=== PATIENT | female | born 2000 | race Caucasian/White ===

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

== ENCOUNTER 2018-01-18 21:17 | Emergency (ER) | payer MEDICAID ==
[2018-01-18] MEDS ORDERED: Fluticasone NASAL SPRAY 50MCG* 16 gm SPRAY BTL BOTH NARES ONE (22:59)
--- NOTE | 2018-01-18 23:00 | ED ---
Throat Pain/Nasal Congestion - HPI Summary HPI Summary: 17 female presents to sore throat for the past couple days. She states her throat mostly hurts in the morning. she has been having postnasal drip. She admits to sinus congestion. She admits to occasional headache. She admits to ear fullness. She has not taking anything for her symptoms. She took Chloraseptic without relief. She denies any history of seasonal allergies. She denies any cough. No chest pain or shortness of breath. She also admits to some right upper dental pain and she lost her filling three months ago. She states that is worse with cold and hot temperatures. She states that it is a sharp pain. No abscess felt the area. She has a dental follow-up in a week. - History of Current Complaint Chief Complaint: EDThroatPain Time Seen by Provider: 01/18/18 22:15 - Allergies/Home Medications Allergies/Adverse Reactions: Allergies Allergy/AdvReac Type Severity Reaction Status Date / Time Latex, Natural Rubber Allergy Rash Verified 10/21/17 15:48 Home Medications: Home Medications Acetaminophen TAB* [Tylenol TAB*] 650 mg PO Q4H PRN 01/18/18 [History Confirmed 01/18/18] PMH/Surg Hx/FS Hx/Imm Hx Endocrine/Hematology History: Denies: Hx Anticoagulant Therapy, Hx Diabetes, Hx Thyroid Disease Cardiovascular History: Denies: Hx Hypertension, Hx Pacemaker/ICD Respiratory History: Reports: Hx Asthma - albuterol MDI prn Denies: Hx Chronic Obstructive Pulmonary Disease (COPD) GI History: Denies: Hx Ulcer History: Denies: Hx Renal Disease Neurological History: Denies: Hx Dementia, Hx Seizures Psychiatric History: Reports: Hx Anxiety - Pt states no MH hx, Hx Depression, Hx Post Traumatic Stress Disorder, Hx Inpatient Treatment, Hx of Violent Episodes Against Others, Other Psychiatric Issues/Disorders - add, odd, borderline personality disorder Denies: Hx Eating Disorder, Hx Substance Abuse - Surgical History Surgery Procedure, Year, and Place: 2001 tonsilectomy - Immunization History Date of Tetanus Vaccine: Up to date Date of Influenza Vaccine: None, never Infectious Disease History: No Infectious Disease History: Reports: Hx of Known/Suspected MRSA - hx of mrsa in boil on leg Denies: Hx Clostridium Difficile, Hx Hepatitis, Hx Human Immunodeficiency Virus (HIV), Hx Shingles, Hx Tuberculosis, History Other Infectious Disease, Traveled Outside the [place] in Last 30 Days - Family History Known Family History: Positive: Other - schizophrenia, bipolar, depression, anxiety, mood disorder, EtOH abuse - Social History Alcohol Use: None Hx Substance Use: Yes Substance Use Type: Reports: None Substance Use Comment - Amount & Last Used: denies drug use when asked but urine screen shows positive for cannabinoids Hx Tobacco Use: Yes Smoking Status (MU): Heavy Every Day Tobacco Smoker Type: Cigarettes Amount Used/How Often: 3 qd Have You Smoked in the Last Year: Yes Review of Systems Negative: Fever Positive: Dental Pain, Sore Throat Negative: Chest Pain Negative: Shortness Of Breath All Other Systems Reviewed And Are Negative: Yes Physical Exam Triage Information Reviewed: Yes Vital Signs On Initial Exam: Initial Vitals Temp Pulse Resp BP Pulse Ox 99.6 F 105 20 137/78 97 01/18/18 21:18 01/18/18 21:18 01/18/18 21:18 01/18/18 21:18 01/18/18 21:18 Vital Signs Reviewed: Yes Appearance: Positive: Well-Appearing Skin: Positive: Warm, Dry Head/Face: Positive: Normal Head/Face Inspection Eyes: Positive: Normal, EOMI, YAHAIRA, Conjunctiva Clear ENT: Positive: Pharynx normal - cobblestone, Nasal drainage, TMs normal, Other - soft palate symmetric. Negative: Trismus, Muffled voice, Uvula midline Neck: Positive: Supple, Nontender, No Lymphadenopathy Respiratory/Lung Sounds: Positive: Clear to Auscultation, Breath Sounds Present Cardiovascular: Positive: Normal, RRR Abdomen Description: Positive: Nontender, Soft Bowel Sounds: Positive: Present Musculoskeletal: Positive: Normal Neurological: Positive: Normal Psychiatric: Positive: Normal Diagnostics - Vital Signs Vital Signs Temp Pulse Resp BP Pulse Ox 01/18/18 21:18 99.6 F 105 20 137/78 97 - Laboratory Lab Statement: Any lab studies that have been ordered have been reviewed, and results considered in the medical decision making process. EENT Course/Dx - Course Course Of Treatment: 17 female presents to sore throat for the past couple days. She states her throat mostly hurts in the morning. she has been having postnasal drip. She admits to sinus congestion. She admits to occasional headache. She admits to ear fullness. She has not taking anything for her symptoms. She took Chloraseptic without relief. She denies any history of seasonal allergies. She denies any cough. No chest pain or shortness of breath. She also admits to some right upper dental pain and she lost her filling three months ago. She states that is worse with cold and hot temperatures. She states that it is a sharp pain. No abscess felt the area. She has a dental follow-up in a week. On exam has cobblestoning of pharynx. Uvula midline. Soft palate symmetric. Lungs clear to auscultation. Nasal discharge present. Tympanic membrane shows fluid behind the ears. Symptoms are most consistent with allergic rhinitis. Will try Flonase her symptoms. Patient declined strep was slow at this time. Dental pain does not appear to be an abscess or a source of infection. We'll have follow-up with dentist as scheduled. Patient understands agrees with plan. - Differential Diagnoses Differential Diagnoses: Allergic Rhinitis, Pharyngitis, Sinusitis - Diagnoses Provider Diagnoses: Pharyngitis Discharge - Sign-Out/Discharge Documenting (check all that apply): Discharge/Admit/Transfer - Discharge Plan Condition: Good Disposition: HOME Patient Education Materials: Allergic Rhinitis (ED) Referrals: Reyna Flores NP [Primary Care Provider] - Additional Instructions: Use saline spray in nose as much as needed Use intranasal steroid one spray each nostril twice a day Take Tylenol or ibuprofen for headache every 6 hours Follow up with primary in 5 days if no improvement Return to ED if develop any new or worsening symptoms - Billing Disposition and Condition Condition: GOOD Disposition: Home
[2018-01-18 23:33] VITALS: BP 130/76
== END 2018-01-18 23:35 | disposition home or self-care (01) ==
LOC: ED 21:17
DX: J02.9 Acute pharyngitis, unspecified (principal); R09.82 Postnasal drip; J34.89 Other specified disorders of nose and nasal sinuses; K08.89 Other specified disorders of teeth and supporting structures; J45.909 Unspecified asthma, uncomplicated; F17.210 Nicotine dependence, cigarettes, uncomplicated; Z86.14 Personal history of Methicillin resistant Staphylococcus aureus infection
CPT/HCPCS: 36415; 86703; 99282

== ENCOUNTER 2019-01-04 12:22 | Emergency (ER) | payer OTHER ==
[2019-01-04 14:55] VITALS: BP 116/64
--- NOTE | 2019-01-04 16:10 | ED ---
Throat Pain/Nasal Congestion - HPI Summary HPI Summary: Patient is a 18-year-old female with history of root canal to tooth #15 presenting to the ED with tooth pain times several weeks. She states since the root canal fell out approximately 2 weeks ago, she has been endorsing pain to this area. She denies any swelling, drainage from the area. No history of abscess. She states they never placed Over the area which has caused her more pain. She is currently and unable to take ibuprofen. States she has not been taking Tylenol or other medications [id number] for relief. - History of Current Complaint Chief Complaint: EDDentalPain Time Seen by Provider: 01/04/19 13:06 Hx Obtained From: Patient Onset/Duration: Sudden Onset Severity: Moderate Associated Signs And Symptoms: Negative: Dysphagia, FB Sensation, Drooling, Wheezing, Hoarseness - Epiglottits Risk Factors Epiglottis Risk Factors: Negative - Allergies/Home Medications Allergies/Adverse Reactions: Allergies Allergy/AdvReac Type Severity Reaction Status Date / Time Latex, Natural Rubber Allergy Rash Verified 01/04/19 13:18 PMH/Surg Hx/FS Hx/Imm Hx Previously Healthy: Yes Endocrine/Hematology History: Denies: Hx Anticoagulant Therapy, Hx Diabetes, Hx Thyroid Disease Cardiovascular History: Denies: Hx Hypertension, Hx Pacemaker/ICD Respiratory History: Reports: Hx Asthma - albuterol MDI prn Denies: Hx Chronic Obstructive Pulmonary Disease (COPD) GI History: Denies: Hx Ulcer History: Denies: Hx Renal Disease Sensory History: Denies: Hx Eye Prosthesis, Hx Legally Blind, Hx Deafness Opthamlomology History: Denies: Hx Eye Prosthesis, Hx Legally Blind Neurological History: Denies: Hx Dementia, Hx Seizures Psychiatric History: Reports: Hx Anxiety - Pt states no MH hx, Hx Depression, Hx Post Traumatic Stress Disorder, Hx Inpatient Treatment, Hx of Violent Episodes Against Others, Other Psychiatric Issues/Disorders - add, odd, borderline personality disorder Denies: Hx Eating Disorder, Hx Substance Abuse - Surgical History Surgery Procedure, Year, and Place: 2001 tonsilectomy - Immunization History Date of Tetanus Vaccine: Up to date Date of Influenza Vaccine: None, never Hx Pertussis Vaccination: No Immunizations Up to Date: Yes Infectious Disease History: No Infectious Disease History: Reports: Hx of Known/Suspected MRSA - hx of mrsa in boil on leg Denies: Hx Clostridium Difficile, Hx Hepatitis, Hx Human Immunodeficiency Virus (HIV), Hx Shingles, Hx Tuberculosis, History Other Infectious Disease, Traveled Outside the [place] in Last 30 Days - Family History Known Family History: Positive: Other - schizophrenia, bipolar, depression, anxiety, mood disorder, EtOH abuse - Social History Occupation: Unemployed Lives: With Family Alcohol Use: None Hx Substance Use: Yes Substance Use Type: Reports: None Substance Use Comment - Amount & Last Used: denies drug use when asked but urine screen shows positive for cannabinoids Hx Tobacco Use: Yes Smoking Status (MU): Heavy Every Day Tobacco Smoker Type: Cigarettes Amount Used/How Often: 3 qd Have You Smoked in the Last Year: Yes Review of Systems Constitutional: Negative Negative: Fever, Chills, Fatigue, Skin Diaphoresis Positive: Dental Pain - left upper to tooth #15 Negative: Palpitations, Chest Pain Negative: Shortness Of Breath, Cough Genitourinary: Negative Positive: no symptoms reported, see HPI Negative: Arthralgia, Myalgia Positive: Other Neurological: Negative All Other Systems Reviewed And Are Negative: Yes Physical Exam Triage Information Reviewed: Yes Vital Signs On Initial Exam: Initial Vitals Temp Pulse Resp BP Pulse Ox 98.3 F 100 18 115/68 97 01/04/19 12:24 01/04/19 12:24 01/04/19 12:24 01/04/19 12:24 01/04/19 12:24 Vital Signs Reviewed: Yes Appearance: Positive: Well-Appearing, Well-Nourished Skin: Positive: Warm, Skin Color Reflects Adequate Perfusion Head/Face: Positive: Normal Head/Face Inspection Eyes: Positive: EOMI, Conjunctiva Clear ENT: Positive: Other - left upper dental pain without erythema, swelling or drainage Neck: Positive: Supple, No Lymphadenopathy Respiratory/Lung Sounds: Positive: Clear to Auscultation, Breath Sounds Present Cardiovascular: Positive: RRR, Pulses are Symmetrical in both Upper and Lower Extremities Musculoskeletal: Positive: Normal, Strength/ROM Intact Neurological: Positive: Sensory/Motor Intact, Alert, Oriented to Person Place, Time, Speech Normal Psychiatric: Positive: Affect/Mood Appropriate Diagnostics - Vital Signs Vital Signs Temp Pulse Resp BP Pulse Ox 01/04/19 14:53 98.4 F 96 18 116/64 97 01/04/19 12:24 98.3 F 100 18 115/68 97 - Laboratory Lab Statement: Any lab studies that have been ordered have been reviewed, and results considered in the medical decision making process. EENT Course/Dx - Course Course Of Treatment: Patient is evaluated for removal a root canal which is recently fallen out. She denies any fevers, sweats, chills. She states she is making sure she does not have an infection before the tooth was pulled next week. Physical examination, there is no swelling or drainage from the tooth. There appears to be an area where a root canal was placed and has fallen out. No signs of infection. This patient will have this tooth pulled next week, she will be placed on Keflex which is safe in . She is encouraged Tylenol. - Differential Diagnoses Differential Diagnoses: Other - Fracture, gingivitis, dental abscess, dental pain, broken root canal - Diagnoses Provider Diagnoses: Failing root canal Discharge - Sign-Out/Discharge Documenting (check all that apply): Patient Departure Patient Received Moderate/Deep Sedation with Procedure: No - Discharge Plan Condition: Stable Disposition: HOME Prescriptions: Cephalexin CAP* [Keflex CAP*] 500 mg PO BID #14 cap MDD 4 Patient Education Materials: Toothache (ED) Referrals: Reyna Flores NP [Primary Care Provider] - Additional Instructions: Please follow up with your dentist Keflex twice daily x 7 days - Billing Disposition and Condition Condition: STABLE Disposition: Home
== END 2019-01-04 14:53 | disposition home or self-care (01) ==
LOC: ED 12:22
DX: O26.899 Other specified pregnancy related conditions, unspecified trimester (principal); K08.59 Other unsatisfactory restoration of tooth; J45.909 Unspecified asthma, uncomplicated; Z91.040 Latex allergy status; F17.210 Nicotine dependence, cigarettes, uncomplicated
CPT/HCPCS: 99281

== ENCOUNTER → 2019-03-04 14:58 | Emergency (ER) | payer OTHER ==
[2019-03-04 16:20] LABS: ABS Eosinophils 0.1 10^3/ul (0-0.6); ABS Lymphocytes 2.2 10^3/ul (1.0-4.8); ABS Monocytes 0.4 10^3/ul (0-0.8); ABS Neutrophils 10.6 10^3/ul (1.5-7.7); Eosinophil % 0.6 %; Hematocrit 37 % (35-47); Hemoglobin 12.1 g/dL (12.0-16.0); Lymphocyte % 16.7 %; Mean Corpuscular HGB Conc 33 g/dL (31-36); Mean Corpuscular Hemoglobin 31 pg (27-31); Mean Corpuscular Volume 95 fL (80-97); Mean Platelet Volume 9.2 fL (7.4-10.4); Platelet Count 187 10^3/uL (150-450); Red Blood Count 3.91 10^6 /uL (3.70-4.87); Red Cell Distribution Width 14 % (10-15); White Blood Count 13.4 10^3/uL (3.5-10.8)
[2019-03-04 16:23] LABS: Urine Appearance Cloudy; Urine Bacteria 1+ (Absent); Urine Bilirubin Negative (Negative); Urine Blood Negative (Negative); Urine Color Yellow; Urine Glucose Negative (Negative); Urine Ketones Negative (Negative); Urine Nitrite Negative (Negative); Urine Protein Negative (Negative); Urine Red Blood Cell Trace(0-2/hpf) (Absent); Urine Specific Gravity 1.006 (1.010-1.030); Urine Squamous Epithelial Cell Present (Absent); Urine Urobilinogen Negative (Negative); Urine White Blood Cell Trace(0-5/hpf) (Absent)
[2019-03-04 16:28] LABS: Albumin/Globulin Ratio 1.4 (1-3); Calcium 8.6 mg/dL (8.6-10.3); EGFR African American 163.6 (>60); EGFR Non-African American 135.2 (>60); Globulin 2.9 g/dL (2-4); Potassium 3.4 mmol/L (3.5-5.0); Total Bilirubin 0.4 mg/dL (0.2-1.0); Total Protein 6.9 g/dL (6.4-8.9)
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
[2019-03-04 19:13] VITALS: BP 118/63
== END | disposition left against medical advice (07) ==
LOC: ED 14:58
DX: O26.893 Other specified pregnancy related conditions, third trimester (principal); R10.9 Unspecified abdominal pain; S06.0X0A Concussion without loss of consciousness, initial encounter; V43.52XA Car driver injured in collision with other type car in traffic accident, initial encounter; Y92.481 Parking lot as the place of occurrence of the external cause; N13.30 Unspecified hydronephrosis; Z3A.28 28 weeks gestation of pregnancy; J45.909 Unspecified asthma, uncomplicated; Z91.040 Latex allergy status; F17.210 Nicotine dependence, cigarettes, uncomplicated
CPT/HCPCS: 36415; 76700; 76815; 80053; 81003; 81015; 83605; 85025; 86850; 86900; 86901; 87086; 99283

== ENCOUNTER 2019-05-11 00:29 | Inpatient (IN) | payer OTHER ==
--- NOTE | 2019-05-11 01:39 | HP ---
General Information - Reason for Visit contractions q 2minutes - General Information Maternal Age: 18 Grav: 3 Para: 2 SAB: 0 IEA: 0 Estimated Due Date: 05/21/19 Determined By: LMP Maternal Blood Type and Rh: O Positive - Results this Serology/RPR Result: Non-Reactive Rubella Result: Non-Immune HBsAg Result: Negative HIV Result: Negative GBS Culture Result: Negative Past Medical History Delivery History: See Records Pertinent Past Medical History: See Records Pertinent Past Surgical History: None Pertinent Family History: Non-Contributory - Antepartal Records Antepartal Records: Reviewed, Uncomplicated Review of Systems Constitutional: Uncomfortable Gastrointestinal: Nausea Genitourinary: No Bleeding, No Leaking Fluid Musculoskeletal: Contractions Neurological: No Headache Movement: Normal Exam Allergies/Adverse Reactions: Allergies Latex, Natural Rubber Allergy (Verified 05/11/19 00:54) Rash - Measurements Height: 5 ft 2 in Weight: 180 lb Weight in lbs: [id number] Body Mass Index (BMI): 32.9 Pre- Weight: 145 lb Weight Gained This : 35 lbs and 0 ozs - Exam Breast: Breast Exam Deferred Extremities: No Edema Heart: Normal Rhythm/Heart Sounds HEENT: No Significant Findings Lungs: Clear Bilaterally Rectal: Rectal Exam Deferred Reflexes: DTR 2+ Targeted Exam Findings Cervical Exam: 8cm Effacement: 80% Station: -1 Presenting Part: Vertex Membrane Status: AROM EFM Findings - External Monitor Findings Baseline Heart Rate: 130 External Monitor Findings: Accelerations Present, Variability Moderate Contractions: Regular, Strong, >90 Seconds Assessment/Plan - Assessment 18 yo in labor - Plan Plan: Admit - Anticipate Vaginal Delivery - gbs negative
[2019-05-11] MEDS ORDERED: Dibucaine 1% 28.35 GM TUBE PR PRN (01:41)
[2019-05-11] MEDS ORDERED: Witch Hazel PAD* JAR TOPICAL PRN (01:41)
[2019-05-11] MEDS ORDERED: Glycerin ADULT SUPP PR PRN (01:41)
[2019-05-11] MEDS ORDERED: Measles, Mumps,Rubella VACC* 0.5 ML/VIAL SUBCUT ONE (01:41)
[2019-05-11] MEDS ORDERED: OXYTOCIN* 10 UNITS/ML 1 ML VIAL IM ONE (01:41)
[2019-05-11] MEDS ORDERED: Varicella Virus Vaccine Live* 0.5 ML VIAL SUBCUT ONE (01:41)
[2019-05-11] MEDS ORDERED: Influenza VAC *QUAD* 2019-20* 0.5 ML SYRINGE IM ONE (01:55)
[2019-05-11] MEDS ORDERED: Tetan/Diph/Pertus SYR(Tdap)* 0.5 ML SYR(BOOSTRIX) use SYR contains LATEX IM ONE (01:55)
[2019-05-11] MEDS ORDERED: Lactated Ringers 1000 ML Bag* 1,000 ML IV SCH (02:00)
[2019-05-11 02:55] LABS: Urine Benzodiazepine Screen None Detected (None Detect); Urine Opiates Screen None Detected (None Detect)
[2019-05-11] MEDS: Ibuprofen TAB* 600 MG PO PRN ×2 (03:00→11:57)
--- NOTE | 2019-05-11 05:24 | PROCNOTE ---
[facility] OB: Delivery Note - Delivery A Date of : 05/11/19 Time of : 01:23 Weight at : 6 lb 4 oz Score 1 Minute: 5 Score 5 Minutes: 8 Gestational Age in Weeks and Days at Delivery: 38 Weeks and 4 Days Delivery Method: Spontaneous Vaginal Labor: Spontaneous Did Patient attempt ?: N/A, No Previous Amniotic Fluid: Clear Anesthesia/Analgesia: None Delivered By: Benson Atwood - Nursery Level of Nursery: Regular/Bedside - Perineum Perineal Injury: None/Intact - Events Delivery Events of Note: Pitocin Only After Delivery, Precipitous Delivery, Internal Scalp EKG Delivery Events of Note Comment: variable decles with pushing/ 02 applied. pt pushed well for 15 minutes
[2019-05-11] MEDS: Docusate CAP* 100 MG PO SCH ×3 (08:14→21:46)
[2019-05-11] MEDS: Acetaminophen TAB* 325 MG PO PRN ×2 (08:15→21:46)
[2019-05-11] MEDS ORDERED: Simethicone TAB* 80 MG TAB.CHEW PO SCH (08:30)
[2019-05-12] MEDS: Acetaminophen TAB* 325 MG PO PRN (07:50)
[2019-05-12] MEDS: Docusate CAP* 100 MG PO SCH (07:50)
[2019-05-12 08:30] VITALS: BP 109/67
[2019-05-12] MEDS ORDERED: Ferrous Gluconate TAB* 324 MG TAB PO SCH (09:00)
[2019-05-12 10:38] LABS: ABS Eosinophils 0.1 10^3/ul (0-0.6); ABS Monocytes 0.7 10^3/ul (0-0.8); ABS Neutrophils 8.2 10^3/ul (1.5-7.7); Eosinophil % 1.1 %; Hematocrit 32 % (35-47); Hemoglobin 10.2 g/dL (12.0-16.0); Lymphocyte % 25.1 %; Mean Corpuscular HGB Conc 32 g/dL (31-36); Mean Corpuscular Hemoglobin 28 pg (27-31); Mean Corpuscular Volume 87 fL (80-97); Mean Platelet Volume 9.5 fL (7.4-10.4); Nucleated Red Blood Cells % 0.1; Platelet Count 155 10^3/uL (150-450); Red Blood Count 3.66 10^6 /uL (3.70-4.87); Red Cell Distribution Width 16 % (10-15); White Blood Count 12.1 10^3/uL (3.5-10.8)
== END 2019-05-12 10:50 | disposition home or self-care (01) | DRG 560 ==
LOC: MCHOBOUT 00:29 → MCHOB 00:48
PROVIDERS: ADMIT Obstetrics & Gynecology; ATTEND Obstetrics & Gynecology
PROC: 10E0XZZ Delivery of Products of Conception, External Approach (ICD-10-PCS; principal; 2019-05-11)
PROC: 10H073Z Insertion of Monitoring Electrode into Products of Conception, Via Natural or Artificial Opening (ICD-10-PCS; 2019-05-11)
PROC: 4A1H7CZ Monitoring of Products of Conception, Cardiac Rate, Via Natural or Artificial Opening (ICD-10-PCS; 2019-05-11)
PROC: 10907ZC Drainage of Amniotic Fluid, Therapeutic from Products of Conception, Via Natural or Artificial Opening (ICD-10-PCS; 2019-05-11)
PROC: 4A1HXCZ Monitoring of Products of Conception, Cardiac Rate, External Approach (ICD-10-PCS; 2019-05-11)
DX: O62.3 Precipitate labor (principal); Z37.0 Single live birth; O76 Abnormality in fetal heart rate and rhythm complicating labor and delivery; Z3A.38 38 weeks gestation of pregnancy; Z87.891 Personal history of nicotine dependence; Z91.040 Latex allergy status; Z91.048 Other nonmedicinal substance allergy status
CPT/HCPCS: 36415; 80307; 85025; A9270-GY; J2590

== ENCOUNTER 2019-08-24 11:31 | Emergency (ER) | payer OTHER ==
[2019-08-24 12:06] LABS: Influenza A Molecular NEGATIVE (Negative); Influenza B Molecular NEGATIVE (Negative)
[2019-08-24] MEDS ORDERED: Meclizine TAB* 12.5 MG PO ONE (12:15)
--- NOTE | 2019-08-24 12:15 | ED ---
Influenza-Like Illness - HPI Summary HPI Summary: Pt is a 19 y/o F presenting to the ED with a chief complaint of a flu-like illness. She states it came on 08/23/2019 with dizziness that developed into her vomiting every time she moves. She describes the dizziness as room spinning, like shes drunk. She reports nasal discharge, nausea, body aches, and productive cough over the past two days. She denies fever, and did not get her flu shot as she gets sick from it. - History of Current Complaint Chief Complaint: EDFluSymptoms Time Seen by Provider: 08/24/19 11:59 Hx Obtained From: Patient Onset/Duration: Gradual Onset, Lasting Days, Still Present Severity: Moderate Associated Signs & Symptoms: Myalgia, Cough, Nasal Congestion, Vomiting - Allergy/Home Medications Allergies/Adverse Reactions: Allergies Allergy/AdvReac Type Severity Reaction Status Date / Time Latex, Natural Rubber Allergy Rash Verified 08/24/19 11:34 PMH/Surg Hx/FS Hx/Imm Hx Previously Healthy: Yes Endocrine/Hematology History: Denies: Hx Anticoagulant Therapy, Hx Diabetes, Hx Thyroid Disease Cardiovascular History: Denies: Hx Hypertension, Hx Pacemaker/ICD Respiratory History: Reports: Hx Asthma - albuterol MDI prn Denies: Hx Chronic Obstructive Pulmonary Disease (COPD) GI History: Denies: Hx Ulcer History: Denies: Hx Renal Disease Sensory History: Denies: Hx Eye Prosthesis, Hx Legally Blind, Hx Deafness Opthamlomology History: Denies: Hx Eye Prosthesis, Hx Legally Blind Neurological History: Denies: Hx Dementia, Hx Seizures Psychiatric History: Reports: Hx Anxiety - Pt states no MH hx, Hx Attention Deficit Hyperactivity Disorder, Hx Depression, Hx Post Traumatic Stress Disorder , Other Psychiatric Issues/Disorders - add, odd, borderline personality disorder Denies: Hx Eating Disorder, Hx Panic Disorder, Hx Inpatient Treatment, Hx Community Mental Health Tx, Hx Schizophrenia, Hx Bipolar Disorder, Hx Suicide Attempt, Hx of Violent Episodes Against Others, Hx Substance Abuse - Surgical History Surgery Procedure, Year, and Place: 2001 tonsilectomy - Immunization History Date of Tetanus Vaccine: Up to date Date of Influenza Vaccine: None, never Infectious Disease History: No Infectious Disease History: Reports: Hx of Known/Suspected MRSA - hx of mrsa in boil on leg Denies: Hx Clostridium Difficile, Hx Hepatitis, Hx Human Immunodeficiency Virus (HIV), Hx Shingles, Hx Tuberculosis, History Other Infectious Disease, Traveled Outside the [place] in Last 30 Days - Family History Known Family History: Positive: Other - schizophrenia, bipolar, depression, anxiety, mood disorder, EtOH abuse - Social History Alcohol Use: Occasionally Hx Substance Use: Yes Substance Use Type: Reports: Marijuana Substance Use Comment - Amount & Last Used: Used due to ongoing anxiety in addition to related nausea Hx Tobacco Use: Yes Smoking Status (MU): Heavy Every Day Tobacco Smoker Type: Cigarettes Amount Used/How Often: 3 qd Have You Smoked in the Last Year: Yes Review of Systems Negative: Fever Positive: Nasal Discharge Positive: Cough Positive: Nausea Positive: Myalgia Neurological: Other - dizziness All Other Systems Reviewed And Are Negative: Yes Physical Exam - Summary Physical Exam Summary: VITAL SIGNS: Reviewed. GENERAL: Patient is a well-developed and nourished female who is lying comfortable in the stretcher. Patient is not in any acute respiratory distress. HEAD AND FACE: No signs of trauma. Some rhinorrhea. No ecchymosis, hematomas or skull depressions. No sinus tenderness. EYES: PERRLA, EOMI x 2, No injected conjunctiva, no nystagmus. EARS: Hearing grossly intact. Ear canals and tympanic membranes are within normal limits. MOUTH: Oropharynx within normal limits. NECK: Supple, trachea is midline, no adenopathy, no JVD, no carotid bruit, no c- spine tenderness, neck with full ROM. CHEST: Symmetric, no tenderness at palpation. LUNGS: Clear to auscultation bilaterally. No wheezing or crackles. CVS: Regular rate and rhythm, S1 and S2 present, no murmurs or gallops appreciated. ABDOMEN: Soft, non-tender. No signs of distention. No rebound, no guarding, and no masses palpated. Bowel sounds are normal. EXTREMITIES: FROM in all major joints, no edema, no cyanosis or clubbing. NEURO: Alert and oriented x 3. No acute neurological deficits. Speech is normal and follows commands. SKIN: Dry and warm. Triage Information Reviewed: Yes Vital Signs On Initial Exam: Initial Vitals Temp Pulse Resp BP Pulse Ox 97.5 F 84 19 131/76 96 08/24/19 11:32 08/24/19 11:32 08/24/19 11:32 08/24/19 11:32 08/24/19 11:32 Vital Signs Reviewed: Yes Procedures - Sedation Patient Received Moderate/Deep Sedation with Procedure: No Diagnostics - Vital Signs Vital Signs Temp Pulse Resp BP Pulse Ox 08/24/19 11:32 97.5 F 84 19 131/76 96 - Laboratory Lab Results: Lab Results 08/24/19 Range/Units 11:35 Influenza A (Rapid) Negative (Negative) Influenza B (Rapid) Negative (Negative) Lab Statement: Any lab studies that have been ordered have been reviewed, and results considered in the medical decision making process. Flu Symptom Course/Dx - Course Assessment/Plan: Pt is a 19 y/o F presenting to the ED with a chief complaint of a flu-like illness. She states it came on 08/23/2019 with dizziness that developed into her vomiting every time she moves. She describes the dizziness as room spinning, like shes drunk. She reports nasal discharge, nausea, body aches, and productive cough over the past two days. She denies fever, and did not get her flu shot as she gets sick from it. In the ED course she was Meclizine for dizziness. Influenza A and B is negative. Therefore I believe the patient has a common cold which has given vertigo. Patient will be discharged home with follow-up with the primary care physician. She will be given a prescription for medicine for the vertigo. - Diagnoses Differential Diagnosis/HQI/PQRI: Positive: Broncholiolitis, Influenza, Upper Respiratory Infection Provider Diagnoses: URI (upper respiratory infection), Vertigo Discharge ED - Sign-Out/Discharge Documenting (check all that apply): Patient Departure - Discharge Plan Condition: Stable Disposition: HOME Prescriptions: Meclizine TAB* [Antivert 12.5 TAB*] 25 mg PO TID PRN #20 tab PRN Reason: Vertigo Patient Education Materials: Vertigo (ED), Upper Respiratory Infection (ED) Referrals: Licha Funes [Primary Care Provider] - Additional Instructions: Please take your prescribed medications as instructed. Follow up with your primary care provider within the next 1-3 days. Return to the emergency department with any new or worsening symptoms. - Billing Disposition and Condition Condition: STABLE Disposition: Home - Attestation Statements Document Initiated by Scribe: Yes Documenting Scribe: Alaina Read Provider For Whom Scribe is Documenting (Include Credential): Jonathan Garibay MD. Scribe Attestation: I, Alaina Read, scribed for Jonathan Garibay MD. on 08/24/19 at 7. Scribe Documentation Reviewed: Yes Provider Attestation: The documentation as recorded by the scribe, Alaina Read accurately reflects the service I personally performed and the decisions made by me, Jonathan Garibay MD. Status of Scribe Document: Viewed
[2019-08-24] MEDS ORDERED: Ondansetron ODT TAB* 4 MG SL PRN (12:26)
[2019-08-24 12:56] VITALS: BP 136/84
== END 2019-08-24 12:40 | disposition home or self-care (01) ==
LOC: ED 11:31
DX: J06.9 Acute upper respiratory infection, unspecified (principal); R42 Dizziness and giddiness; R05 Cough; R11.10 Vomiting, unspecified; F17.210 Nicotine dependence, cigarettes, uncomplicated
CPT/HCPCS: 99283; A9270-GY

== ENCOUNTER 2019-10-31 08:02 | Emergency (ER) | payer OTHER ==
--- OUTSIDE RECORDS SUMMARY | 2019-10-31 08:06 | XMS REPORT ---
:2000 Author Organization [facility] Care Team Providers Name Role Phone Damienjuan carlosAntonella Primary Care Physician Unavailable Allergies, Adverse Reactions, Alerts Allergy Code CodeSystem Reaction Severity Criticality Status Start Substance Date Moderate Medications Medication Medication Medication Start Stop Route Dose Status Fill Code CodeSystem Date Date Instructions RxNorm Problems Problem Name Code CodeSystem Alternate Alternate Start End Status Narrative Code CodeSystem Date Date Bipolar 24645244 SNOMED-CT Active affective 3-22 disorder, unspecified Bipolar 27808155 SNOMED-CT Active affective 3-22 disorder, unspecified Bipolar [id number] SNOMED-CT Active affective 3-22 disorder, unspecified Bipolar 54880950 SNOMED-CT Active affective 3-22 disorder, unspecified Bipolar [id number] SNOMED-CT Active affective 3-22 disorder, unspecified Relevant diagnostic tests/laboratory data Narrative No Information Procedures Procedure Code CodeSystem Target Date of Status Service Device Device Device Name Site Procedure Delivery Code Name UID Location SNOMED-CT () 2019-07-[address], [id number] SNOMED-CT () 2019-04-[address], [id number] SNOMED-CT () 2019-04-[address], [id number] Encounters/Encounter Diagnoses Encounter Encounter Diagnosis Diagnosis Diagnosis Date of Service Name Code Code Name CodeSystem Diagnosis Delivery Location Non-Billable [address] SNOMED-CT [facility] , , , Vital Signs No Information Social History Element Description Description Start End Code CodeSystem AdditionalInfo Date Date SexAssignedAtBirth Female 1999-08 F AdministrativeGender 0-08 Hospital Discharge Instructions Reason For Referral Medical Equipment FDA Assessments
[2019-10-31 08:09] VITALS: BP 114/70
--- NOTE | 2019-10-31 08:24 | UC ---
Dental HPI - HPI Summary HPI Summary: CHIEF COMPLAINT: Toothache HPI: This is a healthy 19-year-old female with a long-standing problem with tooth #4, upper right. She has had a previous root canal on this tooth but apparently the tooth chipped. She was afraid to go to [place] to get the tooth pulled. In the last 2 days the pain has increased to 9/10 in this area. She denies facial swelling or swelling in the mouth. She denies fever. Pain is increased when she closes her mouth. This condition began approximately one month ago. VITAL SIGNS REVIEWED. Within normal limits unless noted here. NURSES NOTE REVIEWED. " Pt stated that she has a tooth ache- upper right molar. Pt was supposed to have pulled but cancelled. Pt states that pain has been for 2 days " - History of Current Complaint Chief Complaint: UCGeneralIllness Stated Complaint: DENTAL PAIN Time Seen by Provider: 10/31/19 08:05 Hx Last Menstrual Period: 10/25/19 Pain Intensity: 5 - Allergies/Home Medications Allergies/Adverse Reactions: Allergies Allergy/AdvReac Type Severity Reaction Status Date / Time Latex, Natural Rubber Allergy Rash Verified 10/31/19 08:09 Home Medications: Home Medications Acetaminophen TAB* [Tylenol TAB*] 975 mg PO Q6H PRN tab 05/12/19 [Rx Confirmed 10/31/19] Ibuprofen TAB* [Motrin TAB* 600 MG] 600 mg PO Q6H PRN tab 05/12/19 [Rx Confirmed 10/31/19] Meclizine TAB* [Antivert 12.5 TAB*] 25 mg PO TID PRN #20 tab 08/24/19 [Rx Confirmed 10/31/19] Amoxicillin PO (*) [Amoxicillin 875 MG (*)] 875 mg PO BID #20 tab MDD 2 [Rx] HYDROcodone/ACETAMIN 5-325 MG* [[place] 5-325 TAB*] 1 tab PO Q6H #10 tab MDD 4 [Rx] Levonorgestrel-Ethin Estradiol [Lillow-28 Tablet] 1 tab PO DAILY 10/31/19 [ History Confirmed 10/31/19] PMH/Surg Hx/FS Hx/Imm Hx - Additional Past Medical History Additional PMH: PAST MEDICAL HISTORY- CHRONIC and RECURRENT HEALTH PROBLEM LIST REVIEWED. Information relevant to present complaint: VISIT HISTORY REVIEWED. MEDICATIONS & ALLERGIES REVIEWED. HYPERTENSION STATUS: No history of hypertension. FAMILY HISTORY: documented. Positive for: Psychiatric history SOCIAL HISTORY: Home: Lives with a partner and children. No one is sick. Employment: Does not work outside the home. Previously Healthy: Yes Other History Of: Negative For: Anticoagulant Therapy - Surgical History Surgical History: Yes Surgery Procedure, Year, and Place: 2001 tonsilectomy - Family History Known Family History: Positive: Other - schizophrenia, bipolar, depression, anxiety, mood disorder, EtOH abuse - Social History Alcohol Use: Occasionally Substance Use Type: Marijuana Substance Use Comment - Amount & Last Used: Used due to ongoing anxiety in addition to related nausea Smoking Status (MU): Heavy Every Day Tobacco Smoker Type: Cigarettes Amount Used/How Often: 3 qd Have You Smoked in the Last Year: Yes Household Exposure Type: Cigarettes - Immunization History Most Recent Influenza Vaccination: 05/11/19 Most Recent Pneumonia Vaccination: never Vaccination Up to Date: Yes Review of Systems All Other Systems Reviewed And Are Negative: Yes ENT: Positive: Dental Pain Respiratory: Positive: Negative Cardiovascular: Positive: Negative Gastrointestinal: Positive: Negative Is Patient Immunocompromised?: No Physical Exam - Summary Physical Exam Summary: Appearance: The patient is well-appearing, is in no pain or distress, and is well-nourished. Eyes: Conjunctiva are clear. Pupils are equal and reactive to light and accommodation. Extra ocular muscle movement is intact. ENT: The hearing is grossly normal, the pharynx is normal, and the TMs are normal. There is no muffled or hoarse voice. No stridor. Neck: The neck is supple and there is no lymphadenopathy. Examination of the teeth: Tooth #4 is chipped and broken. There is mild inflammation of the gum surrounding the tooth. There is tenderness to palpation. There is no evidence of periapical abscess by palpation. There is no cheek swelling or anterior cervical adenopathy. Respiratory: The chest is non-tender to palpation and without crepitus. The lungs are clear, there are normal breath sounds, and there is no respiratory distress. No wheezes, rales or rhonchi. Cardiovascular: Heart sounds reveal a regular rate and rhythm. There are no clicks, rubs or murmurs. There are no carotid bruits or thrills. Circulation is grossly intact. Abdomen: The abdomen is soft and nontender. There is no organomegaly. Bowel sounds are present and within normal limits. No point tenderness at McBurneys point. No CVA tenderness. Musculoskeletal: Strength is intact. The patient moves all extremities. Neurological: The patient is alert. Motor and sensory are examination grossly intact. Speech is normal. Psychological: The patient displays age appropriate behavior, and is conversant. GCS=15. Skin: Negative for rashes. Triage Information Reviewed: Yes Vital Signs: Initial Vital Signs Temp 98.1 F 10/31/19 08:06 Pulse 70 10/31/19 08:06 Resp 16 10/31/19 08:06 BP 114/70 10/31/19 08:06 Pulse Ox 98 10/31/19 08:06 Vital Signs Reviewed: Yes Dental Complaint Course/Dx - Course Course Of Treatment: Reference #: [id number] no record of abuse This is a healthy 19-year-old female with a long-standing problem with tooth #4 , upper right. She has had a previous root canal on this tooth but apparently the tooth chipped. She was afraid to go to [place] to get the tooth pulled. In the last 2 days the pain has increased to 9/10 in this area. She denies facial swelling or swelling in the mouth. She denies fever. Pain is increased when she closes her mouth. This condition began approximately one month ago. Physical examination shows a chipped tooth #4. There is no evidence of periapical abscess by palpation. The gums are mildly inflamed and the area of the tooth. There is no swelling of the cheek. There is no cervical adenopathy either anterior or posterior. Patient is not having any difficulty breathing or swallowing. My diagnosis is odontalgia. I will start the patient on amoxicillin, twice a day, for 10 days. I've explained to her how to use combination of acetaminophen and ibuprofen. I will also give her 10 Vicodin 5-325. I explained to the patient that she should not be using Tylenol and Vicodin at the same time. Patient will follow up for definitive treatment and knows to go to the emergency department for any problems breathing or swallowing or if she develops swelling or temperature. - Differential Dx/Diagnosis Differential Diagnosis/Dx: Odontogenic Pain Provider Diagnosis: Toothache Discharge ED - Sign-Out/Discharge Documenting (check all that apply): Patient Departure All imaging exams completed and their final reports reviewed: No Studies - Discharge Plan Condition: Stable Disposition: HOME Prescriptions: Amoxicillin PO (*) [Amoxicillin 875 MG (*)] 875 mg PO BID #20 tab MDD 2 HYDROcodone/ACETAMIN 5-325 MG* [[place] 5-325 TAB*] 1 tab PO Q6H #10 tab MDD 4 Patient Education Materials: Toothache (ED) Referrals: Licha Funes [Primary Care Provider] - Additional Instructions: WE DISCUSSED: PLEASE SEEK CARE AT THE EMERGENCY DEPARTMENT IF SYMPTOMS WORSEN OR IF NEW SYMPTOMS DEVELOP. FOLLOW UP WITH YOUR PRIMARY CARE PHYSICIAN IF CONDITION CONTINUES BEYOND 3 DAYS WITHOUT IMPROVEMENT. YOUR DIAGNOSIS IS: TOOTHEACHE YOUR PRESCRIPTION RECOMMENDATION IS: AMOXICILLIN; VICODIN FOR PAIN (#1O) OTHER INSTRUCTIONS: FOR PAIN AND/OR SLEEP: For pain: Ibuprofen (Motrin and other brand names) 400-600mg PLUS acetaminophen (Tylenol and other brand names) 500mg - 1000mg every 8 hours. DO NOT TAKE IBUPROFEN IF YOU ARE BEING EVALUATED FOR COVID-19. DO NOT TAKE ACETAMINOPHEN IF YOU ARE TAKING VICODIN; THE VICODIN ALREADY HAS ACETAMINOPHEN IN IT. Your history and examination is consistent with infection and inflammation causing dental pain. This can be caused by a cavity in tooth, infection of her gums or in abscess below the gums near your tooth. You will be started on an antibiotic and should follow-up with a dentist. Warm water soaks to her cheek as well as salt water gargles will help. Recheck by calling us if your condition worsens. If you develop increased pain, swelling, fever, difficulty swallowing or breathing go directly to the ED. - Billing Disposition and Condition Condition: STABLE Disposition: Home
== END 2019-10-31 08:52 | disposition home or self-care (01) ==
LOC: UCEAST 08:02
DX: K08.89 Other specified disorders of teeth and supporting structures (principal); K03.81 Cracked tooth; Z91.040 Latex allergy status; F17.210 Nicotine dependence, cigarettes, uncomplicated
CPT/HCPCS: 99211; G0463

== ENCOUNTER 2023-02-11 05:53 | Inpatient (IN) ==
[2023-02-11] MEDS ORDERED: Tetan/Diph/Pertus SYR(Tdap) 0.5 ML SYR(BOOSTRIX) use SYR contains LATEX IM ONE (06:29)
[2023-02-11] MEDS ORDERED: Measles, Mumps,Rubella VACC 0.5 ML/VIAL SUBCUT ONE (06:29)
[2023-02-11] MEDS ORDERED: Dibucaine 1% OINT 28.35 GM TUBE PR PRN (06:29)
[2023-02-11] MEDS ORDERED: Oxytocin 10 UNITS/ML 1 ML VIAL IM ONE (06:29)
[2023-02-11] MEDS ORDERED: Varicella Virus Vaccine Live 0.5 ML VIAL SUBCUT ONE (06:29)
[2023-02-11] MEDS ORDERED: Glycerin ADULT 2.4 gm SUPP PR PRN (06:29)
[2023-02-11] MEDS ORDERED: Witch Hazel PAD JAR TOPICAL PRN (06:29)
[2023-02-12 08:23] VITALS: BP 120/67
[2023-02-12 08:49] LABS: ABS Basophils 0.1 10^3/uL (0.0-0.1); ABS Eosinophils 0.1 10^3/uL (0.0-0.5); ABS Lymphocytes 2.6 10^3/uL (1.0-4.8); ABS Monocytes 0.6 10^3/uL (0.0-0.9); ABS Neutrophils 6.1 10^3/uL (1.5-7.6); ABS Nucleated RBC 0.01 10^3/ul; Hematocrit 31.9 % (35-45); Hemoglobin 10.9 g/dL (11.5-14.3); Lymphocyte % 27.8 %; Mean Corpuscular Hgb Conc 34.1 g/dL (31-36); Mean Corpuscular Volume 91.1 fL (80-97); Mean Platelet Volume 10.1 fL (7.5-11.2); Nucleated Red Blood Cells % 0.1 /100 WBC (0.0-0.4); Platelet Count 147 10^3/uL (150-450); Red Cell Distribution Width 14.6 % (12-17); White Blood Count 9.5 10^3/uL (3.8-11.8)
== END 2023-02-12 12:00 | disposition home or self-care (01) | DRG 560 ==
LOC: MCHOBOUT 05:53 → MCHOB 06:04
PROVIDERS: ADMIT Obstetrics & Gynecology; ATTEND Obstetrics & Gynecology